=== PATIENT | female | born 2000 | race Caucasian/White ===

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

== ENCOUNTER 2021-04-14 14:54 | Emergency (ER) | payer MEDICAID, SELFPAY ==
--- NOTE | 2021-04-14 15:07 | ED.RN ---
Pt refuses to answer questions, states she is unsure if she wants to be seen. Officer carol ann at bedside, states pt does have a warrent. Pt refuses to be seen and is arrested and going to long-term
[2021-04-14 15:10] VITALS: TEMP -17.7; TEMP 0
== END 2021-04-14 14:59 | disposition left against medical advice (07) ==
PROVIDERS: PCP Pediatrics
DX: Z53.21 Procedure and treatment not carried out due to patient leaving prior to being seen by health care provider (principal)
CPT/HCPCS: 99281

== ENCOUNTER 2021-08-17 14:43 | Emergency (ER) | payer MEDICAID, SELFPAY ==
[2021-08-17 14:44] VITALS: BP 154/79; PULSE 102; RESP 16; TEMP 36.4; O2SAT 97; BMI 24.1
--- NOTE | 2021-08-17 15:21 | ED.VIS.GI ---
HPI HPI - GI History of Present Illness Chief Complaint: Nausea/Vomiting Informant: patient Abdominal Pain/Flank Pain Onset: Month(s) Context: Gradual Onset Timing: Intermittent Current Severity: Mild Maximum Severity: Mild Worsened by: Nothing Relieved by: Nothing Nausea/Vomiting/Emesis GI Symptom: Positive for Nausea and Vomiting Onset: Month(s) Severity: Mild Diarrhea/Melena/Hematochezia GI Symptom: Negative for Diarrhea, Melena and Hematochezia Associated Symptoms Associated Symptoms: Negative for Dysuria, Frequency and Hematuria Narrative Narrative: 20-year-old female history of irritable bowel syndrome. States she has been having nausea and vomiting intermittently for months. Today she had a low-grade fever around 100. States she had Covid a year ago. Does not have any cough or shortness of breath. Denies any dysuria. Currently no abdominal pain. States after she eats from time to time she will of nausea and vomiting. No diarrhea. No localizing abdominal pain. Said she may have lost 5 to 10 pounds she is down around 129 pounds and normally rates around 140. She denies any significant prior surgeries. Patient does have a history of IV drug abuse but says she has not used for last several weeks. Prior similar symptoms: Yes Recent Illness/Hospitalization: No PFSH PFSH Home Medications doxycycline monohydrate 100 mg PO BID #20 cap 11/15/20 [Rx Last Taken Unknown] ciprofloxacin HCl 500 mg PO BID #14 tab 12/03/20 [Rx Last Taken Unknown] ondansetron 4 mg PO Q8H PRN #7 tab 08/17/21 [Rx Last Taken Unknown] Allergy/AdvReac Type Severity Reaction Status Date / Time Penicillins Allergy Unknown Verified 08/17/21 14:46 Social History Smoking Status: Current every day smoker tobacco type: cigarettes ROS ROS ED ROS Narrative Nausea and vomiting. Review of Systems ROS Unobtainable: Denies due to encephalopathy Constitutional Constitutional ED: Reports fever(s) ENT ENT ED: Denies ear pain or sore throat Cardiovascular Cardiovascular: Denies chest pain Respiratory/Chest Respiratory/Chest: Denies cough or dyspnea Gastrointestinal Gastrointestinal: Reports abdominal pain, nausea and vomiting; Denies constipation, diarrhea or melena Genitourinary Genitourinary ED: Denies dysuria or hematuria Musculoskeletal Musculoskeletal: Denies myalgias Integumentary Denies rash Neurologic Neurologic: Reports headache(s) Psychiatric Psychiatric: Denies depression Endocrine Endocrinology: Denies polyuria Hematologic/Lymphatic Hematologic/Lymphatic: Denies easy bruising Allergic/Immunologic Allergic/Immunologic ED: Denies urticaria EXAM Physical Exam Narrative Exam Narrative: 89-year-old female no acute distress. Vital signs stable afebrile. H EENT exam unremarkable. Posterior pharynx normal. No erythema or exudate. Moist mucous membranes. No signs of trauma. Neck nontender no meningismus. No lymphadenopathy. Lungs clear to auscultation bilaterally. Heart regular rhythm no murmur rate about 100. Abdomen soft nondistended normal bowel sounds no peritoneal signs. Moving all 4 extremities neurovascularly intact. Nontender no cellulitis. Track ceballos in both antecubital areas also left side of her neck. Not infected. She has prior cutting scars on her left forearm. Neurologically she is awake alert with no focal motor deficits. Back nontender. Const Vital Signs: 08/17/21 14:44 Temperature 97.6 F L Temperature Source Temporal Pulse Rate 102 H Respiratory Rate 16 Blood Pressure 154/79 H Blood Pressure Mean 104 Pulse Ox 97 Oxygen Delivery Method Room Air Positive well nourished and well developed; Negative for obese, cachectic, contractures or unkempt General Appearance ED: well developed and NAD; Negative for unkempt, cachectic, contractures or pallor Nutritional Appearance: Negative for cachectic or obese HEENT Reports moist mucous membranes normocephalic and atraumatic; Negative for trauma or tenderness Eyes PERRL and EOMs intact bilaterally Neck no lymphadenopathy, supple and no JVD General: Negative for tenderness Resp normal respiratory effort and clear to auscultation bilaterally Auscultation: Negative for rales, rhonchi or wheezes Cardio regular rate, regular rhythm, S1 normal heart sound, S2 normal heart sound and no murmurs GI non-tender, non-distended and no masses Inspection: Negative for abdominal distention Auscultation: normoactive bowel sounds; Negative for hyperactive bowel sounds or hypoactive bowel sounds Palpation: soft; Negative for tender, guarding, rigid, hepatomegaly, splenomegaly or rebound tenderness present Back/Spine no CVA tenderness General Back: Negative for CVA tenderness Cervical Spine: Negative for cervical spine tenderness Thoracic Spine / Upper Back: Negative for thoracic spinal tenderness Extremity full ROM General Extremety ED: Negative for edema or tenderness General Extremity: Negative for edema Neuro CN's II-XII intact bilaterally and moves all extremities Sensorium / Orientation: alert, oriented to person, oriented to place and oriented to time; Negative for orientation impaired, confused, lethargic or stuporous Motor Exam: strength 5/5 throughout; Negative for general weakness Psych mental status grossly normal and thought process normal Appearance: Negative for unkempt Skin no wounds Skin Narrative: Track ceballos both arms and the left side of her neck. No acute infection. General Skin Exam: Negative for jaundice or pallor Lesions: no lesions Rashes: no rashes MDM MDM MDM Narrative Medical decision making narrative: Serum test negative.20-year-old with intermittent nausea and vomiting for months. Low-grade fever today prior to arrival currently she is afebrile. Screening labs are being obtained. Exam is benign. Exam patient is doing well at 4:40 PM. Repeat exam benign and unchanged. Clinically looks well she will be discharged home with outpatient follow-up with her primary care provider Dr. Frde Delgado. Lab Data Attestation: I reviewed the patient's lab results. Lab results narrative: CBC is normal white count 8. Hemoglobin 12.9. Platelets of 413. Electrolytes show a gap at 9 normal BUN and creatinine. Liver enzymes are unremarkable lipase is normal at 53. Urinalysis is negative other than occult blood. No nitrates and 1+ bacteria. No white or red cells. Labs: Laboratory Results - last 24 hr 08/17/21 08/17/21 08/17/21 15:24 15:40 15:40 WBC 8.7 RBC 4.72 Hgb 12.9 Hct 38.4 MCV 81.4 MCH 27.3 MCHC 33.6 RDW Std Deviation 39.5 RDW Coeff of [place] 13.5 Plt Count 413 MPV 10.3 Immature Gran % (Auto) 0.300 Neut % (Auto) 79.7 H Lymph % (Auto) 16.7 L [place] % (Auto) 2.7 Eos % (Auto) 0.0 Baso % (Auto) 0.6 Absolute Neuts (auto) 6.9 Absolute Lymphs (auto) 1.45 Nucleated RBC % 0 Sodium 137 Potassium 4.2 Chloride 102 Carbon Dioxide 26.0 Anion Gap 9 BUN 12 Creatinine 0.94 Estim Creat Clear Calc 72.64 Est GFR (MDRD) Af Amer 98 Est GFR (MDRD) Non-Af 81 BUN/Creatinine Ratio 12.7 Glucose 101 Calcium 9.9 Total Bilirubin 0.60 AST 32 ALT 44 Alkaline Phosphatase 111 Total Protein 9.3 H Albumin 3.8 Globulin 5.5 H Albumin/Globulin Ratio 0.7 L Lipase 53 L Urine Color Yellow Urine Clarity Clear Urine pH 8.0 Ur Specific [place] 1.010 Urine Protein Negative Urine Glucose (UA) Normal Urine Ketones Negative Urine Occult Blood 250 H Urine Nitrite Negative Urine Bilirubin Negative Urine Urobilinogen Normal Ur Leukocyte Esterase Negative Urine RBC 0 SEEN Urine WBC 0-5 SEEN Ur Squamous Epith Cells 0-5 SEEN Urine Bacteria 1+ Urine Mucus 0 SEEN Radiography Diagnostic Testing: Clinical Impression(s) from Imaging Studies Chest X-Ray 08/17/21 15:48 IMPRESSION: Normal x-ray examination of the chest. Electronically Signed: Nasim Peres DO at 16:22 EST Tel [phone], Service support , Chest x-ray, portable, single view interpreted by myself shows no acute abnormality. Normal cardiac silhouette. Normal mediastinum. Normal lungs bilaterally. No signs of any infiltrate. Discharge Plan Triage Chief Complaint: Nausea/Vomiting ED Provider: Jai Cope Dx/Rx/DC Orders Clinical Impression: Nausea & vomiting, Heroin abuse Instructions: ED Vomiting (Adult) Prescriptions: New ondansetron 4 mg tablet,disintegrating 4 mg PO Q8H PRN (Reason: nausea and vomiting) Qty: 7 RF: 0 No Action doxycycline monohydrate 100 MG capsule 100 mg PO BID Qty: 20 RF: 0 ciprofloxacin HCl 500 MG tablet 500 mg PO BID Qty: 14 RF: 0 Primary Care Provider: Armando Katz Referrals: Armando Katz MD [Primary Care Provider] - 3-5 Days if not improving Activity Restrictions/Additional Instructions: Plenty of fluids and rest. Follow-up with your primary care provider Dr. Vishal Katz if not improving. Zofran as needed for nausea. Return emergency room if you are feeling worse. Disposition Disposition: Home, Self Care
[2021-08-17 15:31] LABS: Mucous, Urine 0 SEEN /hpf (<or=2+); Red Blood Cells-Urine 0 SEEN /hpf (0-5)
[2021-08-17 15:38] LABS: Color, Urine Yellow (Yellow); Glucose, Dipstick Normal (Normal); Ketone-Dipstick Negative (Negative); Leukocyte Esterase-Dipstick Negative /ul (Negative); Nitrite-Dipstick Negative (Negative); Occult Blood-Urine 250 /ul (Negative); Protein-Dipstick Negative (Negative); Urine Bilirubin Dipstick Negative (Negative); Urine Clarity Clear (Clear); Urine Urobilinogen Normal (Normal)
--- NOTE | 2021-08-17 15:45 | ED.RN ---
After starting IV with ultrasound and obtaining bloodwork, pt states so you will just call me with my results This RN explains that she needs to wait for results that take usually 45-60 mintutes and then the doctor will go over them. PT states no one told me i have to wait for results This RN reviews the ER process again. Pt states well then i need to go outside and smoke This RN explains that [facility] is a smoke free facility and smoking on property is prohibited. This RN also explains to patient that she cannot leave the department with the IV in her arm. Pt states then take it out This RN explains that after her test results come back the doctor may order further tests or IV medications that would require the IV in place. Pt states then you can start a new one This RN d/c's patients IV at this time.
--- NOTE | 2021-08-17 15:48 | RAD_ITS ---
STUDY: X-RAY CHEST REASON FOR EXAM: Female, 20 years old. Complaints of nausea and vomiting after eating or drinking. Back pain, chest pain and fatigue for many months. Fever. TECHNIQUE: 5 COMPARISON: None. FINDINGS: The lungs are clear and expanded. There is no demonstrated pleural abnormality. Normal size heart. Normal mediastinum and galo. Normal visualized pulmonary arteries. Normal visualized aortic arch and descending thoracic aorta. Normal visualized thoracic spine. Normal visualized ribs, clavicles, and shoulders. There is no demonstrated abnormality of the visualized soft tissue structures of the upper abdomen. RAD/Chest 1 View (Portable) IMPRESSION: Normal x-ray examination of the chest. Electronically Signed: Nasim Peres DO at 16:22 EST Tel [phone], Service support ,
[2021-08-17 16:01] LABS: Absolute Lymphocyte Count 1.45 X10^3/uL (0.83-4.51); Absolute Neutrophil Count 6.9 X10^3/uL (2.0-7.7); Basophil# 0.05 X10^3/uL; Basophil% 0.6 % (0-1); Hematocrit 38.4 % (37-47); Hemoglobin 12.9 g/dL (12.0-15.0); Lymphocyte # 1.45 X10^3/ul (0.83-4.51); Lymphocyte % 16.7 % (19-41); Mean Corp Hgb Conc 33.6 g/dL (32-36); Mean Corpuscular Hgb 27.3 pg (27.0-32.0); Mean Corpuscular Volume 81.4 fL (81-99); Mean Platelet Vol. 10.3 fl (6.2-12.0); Monocyte# 0.23 X10^3/uL; Monocyte% 2.7 % (0-10); NRBC Flagged by Analyzer 0 % (0-5); Neutrophil % 79.7 % (47-70); Platelet Count 413 K/mm3 (150-450); RBC Distribution Width CV 13.5 % (11.6-14.6); RBC Distribution Width SD 39.5 fl (35.1-43.9); Red Blood Count 4.72 M/mm3 (4.2-5.4); White Blood Count 8.7 K/mm3 (4.4-11.0)
[2021-08-17 16:04] LABS: Bacteria 1+ /hpf (None Seen); Squamous Epithelial Cells - UA 0-5 SEEN /hpf (5-10); White Blood Cells 0-5 SEEN /hpf (0-5)
[2021-08-17 16:15] LABS: ALB/GLOB Ratio 0.7 RATIO (0.9-2.4); AST(SGOT) 32 U/L (15-37); Alanine Aminotransfer ALT/SGPT 44 U/L (13-56); Albumin, Serum 3.8 g/dL (3.2-5.0); Alkaline Phosphatase 111 U/L (45-117); Anion Gap 9 (5-15); BUN 12 mg/dL (7-18); BUN/Creat Ratio 12.7 RATIO (10-20); Calcium,Total 9.9 mg/dL (8.5-10.1); Chloride 102 mmol/L (98-107); Creatinine, Serum 0.94 mg/dL (0.55-1.02); EST Glomerular Filtration Rate 81 mL/min (>60); Est Glom Filt Rate - Afr Amer 98 mL/min (>60); Estimated Creatinine Clearance 72.64 ml/min; Globulin 5.5 g/dL (2.2-4.2); Glucose 101 mg/dL (74-106); Lipase 53 U/L (73-393); Potassium 4.2 mmol/L (3.5-5.1); Protein, Total 9.3 g/dL (6.4-8.2); Sodium Level 137 mmol/L (136-145)
[2021-08-17 16:47] LABS: Internal QC Validated? YES +Cl - CLEAR BKGD; Pregnancy, Serum, hCG Quali. NEGATIVE Negative
== END 2021-08-17 16:58 | disposition home or self-care (01) ==
PROVIDERS: Emergency Provider Emergency Medicine; PCP Pediatrics
DX: R11.2 Nausea with vomiting, unspecified (principal); F11.10 Opioid abuse, uncomplicated; K58.9 Irritable bowel syndrome, unspecified; F17.210 Nicotine dependence, cigarettes, uncomplicated
CPT/HCPCS: 71045; 80053; 81001; 83690; 84703; 85025; 87426; 99282; A4216

== ENCOUNTER 2022-04-13 15:36 | Observation (INO) | payer MEDICAID, SELFPAY ==
[2022-04-13 15:37] VITALS: BP 137/89; PULSE 93; RESP 17; TEMP 36.6; O2SAT 99; BMI 23.6
--- NOTE | 2022-04-13 15:49 | EX.ED.SAOD ---
HPI History of Present Illness Chief Complaint: Substance Abuse Narrative Narrative: Female presenting for detox from opioids. She states she typically snorts heroin but has injected as well. She states that oftentimes it is cut with fentanyl. She admits to smoking marijuana. She does not drink alcohol usually. She states she last used heroin this morning. She wants to be clean so she came in for detox. She is not having any symptoms of withdrawal. She states that at times she will get sweaty and nauseous and have some cramps with her withdrawal. She last detoxed a long time ago. She states she did successfully detox and then started using again. She is been using again for about a year. Patient otherwise healthy. She not concern for . [facility] Medical History (Updated 04/13/22 @ 16:25 by Elma Harding) Anxiety IBS (irritable bowel syndrome) Smoker Substance abuse Home Medications NK 04/13/22 [History Last Taken Unknown] Allergy/AdvReac Type Severity Reaction Status Date / Time Penicillins Allergy Unknown Verified 04/13/22 15:39 Social History Smoking Status: Current every day smoker tobacco type: cigarettes EXAM Physical Exam Const Vital Signs: 04/13/22 15:37 Temperature 97.9 F Temperature Source Temporal Pulse Rate 93 Respiratory Rate 17 Blood Pressure 137/89 H Blood Pressure Mean 105 Pulse Ox 99 Oxygen Delivery Method Room Air MDM MDM MDM Narrative Medical decision making narrative: Patient presenting for opioid detox. Last use was this morning. She is not having any symptoms of withdrawal. CBC is unremarkable. CMP shows normal renal function electrolytes. AST and ALT are slightly elevated. Bilirubin is normal. EtOH negative. Serum negative. Patient was given a nicotine patch. Urine drug screen is pending and patient was discussed with the hospitalist for admission. She is transported in stable condition. Impression: 1. Opioid abuse 2. Presentation for opioid detox Lab Data Attestation: I reviewed the patient's lab results. Labs: Laboratory Results - last 24 hr 04/13/22 04/13/22 04/13/22 15:55 15:55 15:55 WBC 6.4 RBC 5.27 Hgb 15.5 H Hct 44.1 MCV 83.7 MCH 29.4 MCHC 35.1 RDW Std Deviation 38.0 RDW Coeff of [place] 12.5 Plt Count 316 MPV 9.8 Immature Gran % (Auto) 0.300 Neut % (Auto) 45.9 L Lymph % (Auto) 43.9 H [place] % (Auto) 5.2 Eos % (Auto) 3.4 Baso % (Auto) 1.3 H Absolute Neuts (auto) 2.9 Absolute Lymphs (auto) 2.80 Nucleated RBC % 0 Sodium 139 Potassium 3.8 Chloride 107 Carbon Dioxide 29.0 Anion Gap 3 L BUN 8 Creatinine 0.76 Estim Creat Clear Calc 89.10 Est GFR (MDRD) Af Amer 124 Est GFR (MDRD) Non-Af 102 BUN/Creatinine Ratio 10.5 Glucose 104 Calcium 9.7 Total Bilirubin 0.30 AST 44 H ALT 90 H Alkaline Phosphatase 117 Total Protein 8.9 H Albumin 4.4 Globulin 4.5 H Albumin/Globulin Ratio 1.0 Serum , Qual Ethyl Alcohol < 3.0 04/13/22 15:55 WBC RBC Hgb Hct MCV MCH MCHC RDW Std Deviation RDW Coeff of [place] Plt Count MPV Immature Gran % (Auto) Neut % (Auto) Lymph % (Auto) [place] % (Auto) Eos % (Auto) Baso % (Auto) Absolute Neuts (auto) Absolute Lymphs (auto) Nucleated RBC % Sodium Potassium Chloride Carbon Dioxide Anion Gap BUN Creatinine Estim Creat Clear Calc Est GFR (MDRD) Af Amer Est GFR (MDRD) Non-Af BUN/Creatinine Ratio Glucose Calcium Total Bilirubin AST ALT Alkaline Phosphatase Total Protein Albumin Globulin Albumin/Globulin Ratio Serum , Qual NEGATIVE Ethyl Alcohol Discharge Plan Triage Chief Complaint: Substance Abuse ED Provider: Declan Patel Dx/Rx/DC Orders Prescriptions: No Action NK Primary Care Provider: Care Physician,No Primary Referrals: NOT,DEFINED [NON-STAFF] -
--- NOTE | 2022-04-13 16:09 | CM.ED ---
Social Work Note Reason for Referral: Detox SW reviewed chart. Pt is at [facility] for detox. SW in to speak with pt. Pt states she signed the contract for the [facility] program and agreeable to the program. SW placed a call to Maribel, addiction therapist, and left message updating her on referral. Danuta Sequeira [employer] ADMINISTRATOR, QUALITY ASSURANCE SPECIALIST
[2022-04-13 16:20] LABS: Absolute Neutrophil Count 2.9 X10^3/uL (2.0-7.7); Basophil# 0.08 X10^3/uL; Basophil% 1.3 % (0-1); Eosinophil# 0.22 X10^3/uL; Eosinophils% 3.4 % (0-5); Hematocrit 44.1 % (37-47); Hemoglobin 15.5 g/dL (12.0-15.0); Lymphocyte % 43.9 % (19-41); Mean Corp Hgb Conc 35.1 g/dL (32-36); Mean Corpuscular Hgb 29.4 pg (27.0-32.0); Mean Corpuscular Volume 83.7 fL (81-99); Mean Platelet Vol. 9.8 fl (6.2-12.0); Monocyte# 0.33 X10^3/uL; Monocyte% 5.2 % (0-10); NRBC Flagged by Analyzer 0 % (0-5); Neutrophil # 2.93 X10^3/uL (2.7-7.7); Neutrophil % 45.9 % (47-70); Platelet Count 316 K/mm3 (150-450); RBC Distribution Width CV 12.5 % (11.6-14.6); Red Blood Count 5.27 M/mm3 (4.2-5.4); White Blood Count 6.4 K/mm3 (4.4-11.0)
[2022-04-13 16:32] LABS: AST(SGOT) 44 U/L (15-37); Alanine Aminotransfer ALT/SGPT 90 U/L (13-56); Albumin, Serum 4.4 g/dL (3.2-5.0); Alkaline Phosphatase 117 U/L (45-117); Anion Gap 3 (5-15); BUN 8 mg/dL (7-18); BUN/Creat Ratio 10.5 RATIO (10-20); Calcium,Total 9.7 mg/dL (8.5-10.1); Chloride 107 mmol/L (98-107); Creatinine, Serum 0.76 mg/dL (0.55-1.02); EST Glomerular Filtration Rate 102 mL/min (>60); Est Glom Filt Rate - Afr Amer 124 mL/min (>60); Globulin 4.5 g/dL (2.2-4.2); Glucose 104 mg/dL (74-106); Potassium 3.8 mmol/L (3.5-5.1); Protein, Total 8.9 g/dL (6.4-8.2); Sodium Level 139 mmol/L (136-145)
[2022-04-13 16:35] LABS: Internal QC Validated? YES +Cl - CLEAR BKGD; Pregnancy, Serum, hCG Quali. NEGATIVE Negative
[2022-04-13 16:40] LABS: Alcohol, Blood (Medical)-Serum < 3.0 mg/dL
--- NOTE | 2022-04-13 17:22 | PCM.HP.STD ---
HPI - General General Date of Admission: 04/13/22 Date of Service: 04/13/22 Chief Complaint: Opiate detox HPI Narrative FERNANDO CALABRESE, is a 21 F who presented to the emergency department [facility] requesting detox from opiates. She states her last use was this morning at approximately 11 AM. She is currently not experiencing any withdrawal symptoms. She uses approximately 1 to 2 g daily and starts experiencing withdrawal symptoms within a few hours of usage. She states she has been through detox once before but that that more at the request of her family and now she feels that she is ready for detox herself. She admits to tobacco abuse approximately 1 pack/day of cigarettes and states she intermittently uses marijuana as well. She admits to previous use of methamphetamines as well however she states she is not typically using this daily unless its cut into her heroin. Vital signs on presentation show a temperature of 97.9, blood pressure of 137/89, pulse of 98, respiratory rate of 17 and an oxygen saturation of 99% on room air. Her CBC is overall unimpressive except for a mild erythrocytosis with a hemoglobin of 15.5. Her chemistry panel is unremarkable except for liver enzyme elevation with an ALT of 90 and an AST of 44. Her test is negative and her ethyl alcohol level is less than 3. General toxicology screen is still pending. She did medicate that she may have a history of hepatitis C but is unsure. Upon review of my labs she has a positive hepatitis C antibody. [facility] Medical History (Updated 04/13/22 @ 17:[address] Eneida Olvera DO) Anxiety Hepatitis C IBS (irritable bowel syndrome) IVDU (intravenous drug user) Smoker Substance abuse Tobacco abuse Home Medications NK 04/13/22 [History Last Taken Unknown] Allergy/AdvReac Type Severity Reaction Status Date / Time Penicillins Allergy Unknown Verified 04/13/22 15:39 Family History (Updated 04/13/22 @ 17:[address] Eneida Olvera DO) Mother Thyroid disorder Substance abuse Father Substance abuse Surgical History (Updated 04/13/22 @ 17:[address] Eneida Olvera DO) History of colonoscopy History of esophagogastroduodenoscopy (EGD) Social History (Updated 04/13/22 @ 17:[address] Eneida Olvera DO) Smoking Status: Current every day smoker tobacco type: cigarettes Smoking packs per day: 1 Smoking cigarettes per day: 20.0 alcohol intake: never substance use type: marijuana, amphetamines, opiates and methamphetamine ROS Constitutional Constitutional: Denies anorexia, change in weight, chills, fatigue, fever(s), malaise, night sweats, weakness or other Eyes Eyes: Denies blurry vision, change in eye color, change in vision, discharge from eye(s), double vision, erythema, eye pain, loss of vision or other ENT HEENT: Denies abnormal hearing, dysphagia, ear pain, epistaxis, headache(s), hearing loss, nasal congestion, nasal discharge, post nasal drip, sinus pressure, sore throat or other Cardiovascular Cardiovascular: Denies chest pain, claudication, dyspnea on exertion, edema, lightheadedness, orthopnea, palpitations, paroxysmal nocturnal dyspnea, rapid heart rate, syncope or other Respiratory/Chest Respiratory/Chest: Denies cough, dyspnea, excessive phlegm production, hemoptysis, productive cough, shortness of breath at rest, shortness of breath with exertion, wheezing or other Gastrointestinal Gastrointestinal: Denies abdominal pain, coffee ground emesis, constipation, diarrhea, dyspepsia, hematemesis, hematochezia, loose stools, melena, nausea, vomiting or other Genitourinary Genitourinary: Denies burning urination, difficulty urinating, dysuria, hematuria, nocturia, urinary frequency, urinary hesitancy, urinary incontinence, urinary urgency or other Musculoskeletal Musculoskeletal: Denies arthralgias, back pain, joint pain, joint stiffness, joint swelling, myalgias, neck pain or other Neurologic Neurologic: Denies abnormal gait, abnormal speech, confusion, disequilibrium, dizziness, focal weakness, headache(s), numbness, paresthesias, seizure-like activity, seizures, syncope, tingling, tremor(s) or other Psychiatric Psychiatric: Denies anxiety, depression, homicidal ideation, suicidal ideation or other Endocrine Endocrinology: Denies change in body appearance, cold intolerance, excessive sweating, heat intolerance, polydipsia, polyuria or other Hematologic/Lymphatic Hematologic/Lymphatic: Denies anemia, easy bleeding, easy bruising, lymphadenopathy or other Allergic/Immunologic Allergic/Immunologic: Denies rhinitis, hives, eczemia, asthma or other Vital Signs Vital Signs Vital Signs: 04/13/22 15:37 Temperature 97.9 F Temperature Source Temporal Pulse Rate 93 Respiratory Rate 17 Blood Pressure 137/89 H Blood Pressure Mean 105 Pulse Ox 99 Oxygen Delivery Method Room Air Weight Weight: 56.699 kg Body Mass Index (BMI) 23.6 Physical Exam Const alert, oriented x3, no apparent distress, average body habitus, healthy appearing and well nourished Constitutional Narrative: Young white female, sitting up in bed, appears comfortable nontoxic HEENT normocephalic, head/scalp atraumatic, hearing grossly normal bilaterally and moist oral mucous membranes HEENT Narrative: Dentition is fair with few dental caries noted in posterior teeth Resp normal respiratory effort, no retractions, no use of accessory muscles and clear to auscultation bilaterally Auscultation: Negative for crackles, rales, rhonchi or wheezes Cardio regular rate, regular rhythm, S1 normal heart sound, S2 normal heart sound, no murmurs, no rub, no gallops, no clicks and no JVD GI normal to inspection, nondistended, normoactive bowel sounds, soft to palpation, non-tender and non-distended; Negative for hepatosplenomegaly Extremity no clubbing, cyanosis or edema Extremity Narrative: 2+ pedal pulses Skin Skin Narrative: No track ceballos noted, evidence of previous cutting on forearms volarly bilaterally Neuro oriented x3, CN's II-XII intact bilaterally, moves all extremities and no focal motor deficits Speech: speech normal Psych affect normal Psych Narrative: Appropriately interactive Mood & Affect: anxious Results Lab / Micro Data Result Diagrams: 04/13/22 15:55 04/13/22 15:55 Labs: Laboratory Results - last 24 hr 04/13/22 15:55: WBC 6.4, RBC 5.27, Hgb 15.5 H, Hct 44.1, MCV 83.7, MCH 29.4, MCHC 35.1, RDW Std Deviation 38.0, RDW Coeff of [place] 12.5, Plt Count 316, MPV 9.8, Immature Gran % (Auto) 0.300, Neut % (Auto) 45.9 L, Lymph % (Auto) 43.9 H, [place] % (Auto) 5.2, Eos % (Auto) 3.4, Baso % (Auto) 1.3 H, Absolute Neuts (auto) 2.9, Absolute Lymphs (auto) 2.80, Nucleated RBC % 0 04/13/22 15:55: Sodium 139, Potassium 3.8, Chloride 107, Carbon Dioxide 29.0, Anion Gap 3 L, BUN 8, Creatinine 0.76, Estim Creat Clear Calc 89.10, Est GFR (MDRD) Af Amer 124, Est GFR (MDRD) Non-Af 102, BUN/Creatinine Ratio 10.5, Glucose 104, Calcium 9.7, Total Bilirubin 0.30, AST 44 H, ALT 90 H, Alkaline Phosphatase 117, Total Protein 8.9 H, Albumin 4.4, Globulin 4.5 H, Albumin/Globulin Ratio 1.0 04/13/22 15:55: Ethyl Alcohol < 3.0 04/13/22 15:55: Serum , Qual NEGATIVE Assessment & Plan Assessment/Plan (1) Heroin abuse: (2) Transaminitis: (3) Opiate withdrawal: PLAN: Plan Opiate abuse with pending withdrawal -Last use was this morning at 11 AM -Uses approximately 1 to 2 g daily -Has been through detox once previously -Start Subutex per COWS -Supportive medications -Consult 180 Hepatitis C with transaminitis -Suspect chronic infection -Patient has history of positive antibody in our system -Would recommend outpatient follow-up with gastroenterology after her sober to discuss possible treatment -Patient did express treatment upon admission IBS -Patient is not on any chronic medications -Patient has had previous EGD and colonoscopy Tobacco abuse -Nicotine patch 21 mics daily -Recommend cessation DVT prophylaxis -Low risk -Ambulation CODE STATUS Full code Charges/Coding Visit Charges Inpatient E&M: 13981 Init Hosp L2
[2022-04-13 17:55] VITALS: BP 137/89; PULSE 93; RESP 17; TEMP 36.6; O2SAT 99
[2022-04-13 18:17] VITALS: BP 137/89; PULSE 93; RESP 17; TEMP 36.6; O2SAT 99
[2022-04-13 18:29] VITALS: BP 117/67; PULSE 74; RESP 18; TEMP 36.6; O2SAT 99
[2022-04-13 18:29] LABS: Amphetamine Urine VISTA NEGATIVE (<1000 ng/mL); Barbiturate Urine VISTA NEGATIVE (< 200 ng/mL); Benzodiazepine Urine VISTA NEGATIVE (< 200 ng/mL); Cocaine Urine VISTA NEGATIVE (< 300 ng/mL); Ecstacy Urine VISTA POSITIVE (< 500 ng/mL); Methadone Urine VISTA NEGATIVE (< 300 ng/mL); PCP Urine VISTA NEGATIVE (< 25 ng/mL); THC Urine VISTA POSITIVE (< 50 ng/mL); Vista UDS pH Range 4
[2022-04-13 18:30] VITALS: BMI 28.9
[2022-04-13 19:41] LABS: HIV - WCH Non-Reactive (Nonreactive)
[2022-04-13 19:50] VITALS: BP 110/72; PULSE 83; RESP 12; TEMP 36.3; O2SAT 98
[2022-04-13] MEDS: traZODone 100 MG Tablet PO (19:57)
[2022-04-14 02:00] VITALS: BP 98/45; PULSE 73; RESP 14; TEMP 36.6; O2SAT 98
[2022-04-14] MEDS: Ibuprofen 400 MG Tablet PO ×2 (03:05→20:24)
[2022-04-14 06:51] VITALS: BP 90/42; PULSE 72; RESP 12; TEMP 36.6; O2SAT 98
[2022-04-14 09:01] VITALS: BP 93/49; PULSE 77; RESP 16; TEMP 36.6; O2SAT 99
[2022-04-14] MEDS: Ondansetron 8 MG Tablet PO (09:03)
--- NOTE | 2022-04-14 09:44 | PCM.PN.HOSP ---
Documented by User: Sandi Gregg NP-C 04/14/22 09:52 Subjective Subjective Patient seen and examined. Patient lying in bed no distress noted. Patient reporting diaphoresis and nausea. Objective Data Objective Data Vital Signs: Vital Signs Temp Pulse Resp BP Pulse Ox O2 Del Method 97.8 F 77 16 93/49 L 99 Room Air 04/14/22 09:01 04/14/22 09:01 04/14/22 09:01 04/14/22 09:01 04/14/22 09:01 04/14/22 09:01 Oxygen Delivery Method Room Air Weight: 153 lb 3.54 oz Body Mass Index (BMI) 28.9 Intake & Output: Intake and Output for Last 24 Hours 04/12/22 04/13/22 04/14/22 23:59 23:59 23:59 Intake Total 800 / 800 Balance 800 / 800 Lab / Micro Data Result Diagrams: 04/13/22 15:55 04/13/22 15:55 Labs: Laboratory Results - last 24 hr 04/13/22 15:55: WBC 6.4, RBC 5.27, Hgb 15.5 H, Hct 44.1, MCV 83.7, MCH 29.4, MCHC 35.1, RDW Std Deviation 38.0, RDW Coeff of [place] 12.5, Plt Count 316, MPV 9.8, Immature Gran % (Auto) 0.300, Neut % (Auto) 45.9 L, Lymph % (Auto) 43.9 H, [place] % (Auto) 5.2, Eos % (Auto) 3.4, Baso % (Auto) 1.3 H, Absolute Neuts (auto) 2.9, Absolute Lymphs (auto) 2.80, Nucleated RBC % 0 04/13/22 15:55: Sodium 139, Potassium 3.8, Chloride 107, Carbon Dioxide 29.0, Anion Gap 3 L, BUN 8, Creatinine 0.76, Estim Creat Clear Calc 89.10, Est GFR (MDRD) Af Amer 124, Est GFR (MDRD) Non-Af 102, BUN/Creatinine Ratio 10.5, Glucose 104, Calcium 9.7, Total Bilirubin 0.30, AST 44 H, ALT 90 H, Alkaline Phosphatase 117, Total Protein 8.9 H, Albumin 4.4, Globulin 4.5 H, Albumin/Globulin Ratio 1.0 04/13/22 15:55: Ethyl Alcohol < 3.0 04/13/22 15:55: Serum , Qual NEGATIVE 04/13/22 15:55: HIV 1&2 Antibody Non-Reactive 04/13/22 17:20: Urine Opiates Screen POSITIVE H, Urine Methadone Screen NEGATIVE, Ur Barbiturates Screen NEGATIVE, Ur Phencyclidine Scrn NEGATIVE, Ur Amphetamines Screen NEGATIVE, MDMA (Ecstasy) Screen POSITIVE H, U Benzodiazepines Scrn NEGATIVE, Urine Cocaine Screen NEGATIVE, U Cannabinoids Screen POSITIVE H, Ur Drug Screen Comment Physical Exam Const alert, oriented x3, no apparent distress, healthy appearing and well nourished HEENT normocephalic, head/scalp atraumatic, hearing grossly normal bilaterally and moist oral mucous membranes Resp normal respiratory effort and clear to auscultation bilaterally Cardio regular rate, regular rhythm, S1 normal heart sound and S2 normal heart sound GI normal to inspection, nondistended, normoactive bowel sounds, soft to palpation and non-tender Extremity no clubbing, cyanosis or edema Extremity Narrative: 2+ pedal pulses Skin Skin Narrative: No track ceballos noted, evidence of previous cutting on forearms volarly bilaterally Neuro oriented x3, moves all extremities and no focal motor deficits Speech: speech normal Psych affect normal Assessment & Plan Assessment/Plan (1) Heroin abuse: (2) Transaminitis: (3) Opiate withdrawal: PLAN: Plan 1. Opiate abuse with pending withdrawal -Start Subutex per COWS -Supportive medications per protocol -Consult 180 2. Hepatitis C with transaminitis -Suspect chronic infection -Patient has history of positive antibody in our system -Would recommend outpatient follow-up with gastroenterology after her sober to discuss possible treatment, patient amenable to treatment 3. IBS -Patient is not on any chronic medications 4. Tobacco abuse -Nicotine patch daily -Recommend cessation DVT prophylaxis-no pharmacological prophylaxis, encourage ambulation This patient was seen by SULEMAN Maradiaga under the supervision of Dr. Rivera. 12 minutes spent in clinical coordination of patient's plan of care. Documented by User: Dr. Marifer Rivera MD 04/14/22 15:00 Objective Data Lab / Micro Data Result Diagrams: 04/13/22 15:55 04/13/22 15:55 Assessment & Plan Assessment/Plan (1) Heroin abuse: (2) Transaminitis: (3) Opiate withdrawal: Charges/Coding Addendum Addendum: This patient was seen in conjunction with Drew Gregg NP. I have independently interviewed and examined the patient and reviewed pertinent historical, laboratory, and other data. I have reviewed her note and concur with her documentation Patient was seen and examined. She complains of feeling restless and having cramps as well as feeling hot and cold. She was yet to be started on Subutex. Physical Exam: Gen: Comfortable, not pale, not jaundiced CVS:HS I +II, regular, no murmurs RESP: Diminished at lung bases GI: BS present and normal, soft, nontender, no palpable organs EXT:No edema ASSESSMENT: 1. Acute opioid withdrawal 2. Chronic Hep C 3. Nicotine dependence 4. IBS Plan: Admit to [facility] on Subutex withdrawal protocol Nicotine replacement Needs outpatient follow-up for Hep C Time spent taking patient's history, physically examining her, chart review, coordinating all aspects of patient's care, discussing with nursin minutes Visit Charges Inpatient E&M: 75612 Subs Hosp L2
[2022-04-14 12:03] VITALS: BP 118/66; PULSE 76; RESP 16; TEMP 36.6; O2SAT 100
[2022-04-14] MEDS: Buprenorphine HCl 2 MG TAB.SUBL SL ×2 (12:24→20:23)
[2022-04-14] MEDS: hydrOXYzine PAM 25 MG Capsule 50 MG PO (13:34)
[2022-04-14] MEDS: cloNIDine HCl 0.1 MG Tablet PO ×2 (13:34→23:21)
[2022-04-14] MEDS: Methocarbamol 750 MG Tablet 1500 MG PO (13:34)
[2022-04-14] MEDS: Gabapentin 300 MG Capsule PO (14:39)
--- NOTE | 2022-04-14 14:40 | CHAPLAIN ---
Type of Pastoral Visit _x__ Initial Visit ___ Follow-up Visit ___ On-call Visit ___ General Patient Visit ___ Spiritual Assessment ___ Family Conference ___ Bereavement ___ Rapid Response ___ Code Blue ___ Other (describe below) Pastoral Care Referral From _x__ Patient ___ Family ___ Nurse ___ Physician ___ Multiple Effect Evaporator Operator ___ [employer] ___ Other (describe below) Sacrament/Intervention _x__ Active listening ___ Anointing ___ Pentecostalism ___ Bereavement ___ Communion ___ Corina exploration ___ ___ Life review _x__ Prayer ___ Reconciliation ___ Sacrament of Sick _x__ Supportive presence ___ Wedding ___ Other (describe below) Pastoral Comments patient welcomes visit; pt states that I am just done with this; pt says that she has been in detox before but then it was because of family pressure; pt says I am doing this now because I want it and this time I'm done with it; pt and this medical office technician talk about what are her hopes for life and what support she has to make it through; pt is unsure about her next step but states her family will be helpful; prayer is welcomed by pt
--- NOTE | 2022-04-14 14:40 | ADDICTION ---
Addendum entered by King Cartagena 04/14/22 14:51: This SW went back in to the room, but client was unresponsive and appeared to be sleeping despite several attempts to rouse and hearing recent screams. Original Note: This SW met with pt. to interview regarding admission symptoms. Pt. was verbally aggressive and asked this SW to leave multiple times. Pt. appeared visibly uncomfortable. Pt. did engage in some questions and verified name and . She reported feeling terrible from heroin withdrawal and stated she was thinking of leaving AMA. This SW provided encouragement and tried engagement again. She reports strong cravings for heroin and feeling uncomfortable. She did state she received medication but it was not helping enough. She screamed a few times. I let her know it was required to complete these questions as part of the RAMP program and let her know I'd return in 5 minutes.
[2022-04-14 17:01] VITALS: BP 125/62; PULSE 86; RESP 14; TEMP 36.7; O2SAT 99
[2022-04-14 20:13] VITALS: BP 116/73; PULSE 85; RESP 12; TEMP 36.9; O2SAT 98
[2022-04-14] MEDS: traZODone 100 MG Tablet PO (20:24)
[2022-04-15 02:00] VITALS: BP 119/50; PULSE 92; RESP 12; TEMP 36.8; O2SAT 98
[2022-04-15] MEDS: Buprenorphine HCl 2 MG TAB.SUBL SL ×2 (04:25→12:03)
--- NOTE | 2022-04-15 09:31 | PCM.PN.HOSP ---
Documented by User: SULEMAN Maradiaga 04/15/22 09:34 Subjective Subjective Patient seen and examined. Patient lying in bed no distress noted. Patient asleep and unwilling to talk to provider this morning. Objective Data Objective Data Vital Signs: Vital Signs Temp Pulse Resp BP Pulse Ox O2 Del Method 98.2 F 92 12 119/50 L 98 Room Air 04/15/22 02:00 04/15/22 02:00 04/15/22 02:00 04/15/22 02:00 04/15/22 02:00 04/15/22 02:00 Oxygen Delivery Method Room Air Weight: 153 lb 3.54 oz Body Mass Index (BMI) 28.9 Intake & Output: Intake and Output for Last 24 Hours 04/13/22 04/14/22 04/15/22 23:59 23:59 23:59 Intake Total 2500 / 2900 600 / 600 Balance 2500 / 2900 600 / 600 Lab / Micro Data Result Diagrams: 04/13/22 15:55 04/13/22 15:55 Physical Exam Const alert, oriented x3, no apparent distress, healthy appearing and well nourished HEENT normocephalic, head/scalp atraumatic, hearing grossly normal bilaterally and moist oral mucous membranes Resp normal respiratory effort and clear to auscultation bilaterally Cardio regular rate, regular rhythm, S1 normal heart sound and S2 normal heart sound GI normal to inspection, nondistended, normoactive bowel sounds, soft to palpation and non-tender Extremity no clubbing, cyanosis or edema Extremity Narrative: 2+ pedal pulses Skin Skin Narrative: No track ceballos noted, evidence of previous cutting on forearms volarly bilaterally Neuro oriented x3, moves all extremities and no focal motor deficits Speech: speech normal Psych affect normal Assessment & Plan Assessment/Plan (1) Heroin abuse: (2) Transaminitis: (3) Opiate withdrawal: PLAN: Plan 1. Opiate abuse with pending withdrawal -Start Subutex per COWS -Supportive medications per protocol -Consult 180, refused to talk to King from 180 yesterday 2. Hepatitis C with transaminitis -Suspect chronic infection -Patient has history of positive antibody in our system -Would recommend outpatient follow-up with gastroenterology after her sober to discuss possible treatment, patient amenable to treatment 3. IBS -Patient is not on any chronic medications 4. Tobacco abuse -Nicotine patch daily -Recommend cessation DVT prophylaxis-no pharmacological prophylaxis, encourage ambulation This patient was seen by Sandi Gregg NP-C under the supervision of Dr. Rivera. 11 minutes spent in clinical coordination of patient's plan of care. Documented by User: Dr. Marifer Rivera MD 04/15/22 11:19 Objective Data Lab / Micro Data Result Diagrams: 04/13/22 15:55 04/13/22 15:55 Assessment & Plan Assessment/Plan (1) Heroin abuse: (2) Transaminitis: (3) Opiate withdrawal: Charges/Coding Addendum Addendum: This patient was seen in conjunction with Drew Gregg NP.?I have independently interviewed and examined the patient and reviewed pertinent historical, laboratory, and other data. I have reviewed her note and concur with her documentation Patient was seen and examined.? No acute events overnight. Denies any new complaints. Physical Exam: Gen: Comfortable, not pale, not jaundiced CVS:HS I +II, regular, no murmurs RESP: Diminished at lung bases GI: BS present and normal, soft, nontender, no palpable organs EXT:No edema ASSESSMENT: 1. Acute opioid withdrawal 2. Chronic Hep C 3. Nicotine dependence 4. IBS Plan: Continue on Subutex withdrawal protocol Outpatient follow-up for Hep C Time spent taking coordinating all aspects of patient's care, discussing with nursin minutes Visit Charges Inpatient E&M: 49284 Subs Hosp L2
[2022-04-15 10:00] VITALS: BP 122/54; PULSE 94; RESP 18; TEMP 36.7; O2SAT 98
[2022-04-15 15:19] VITALS: BP 117/55; PULSE 90; RESP 16; TEMP 36.7; O2SAT 98
--- NOTE | 2022-04-15 15:52 | NURSING ---
pt turned call light on, requesting to sign out AMA-pt states she feels all better and wants to leave, spoke w/pt about meds to try for anxiety, try moving to chair she said bed is uncomfortable gave #to nurse for her mom eddie called that # and left msg to return call-pt then left ambulatory, refused to wait for return call/ride
== END 2022-04-15 16:10 | disposition left against medical advice (07) ==
LOC: ED 16:06 → MS3 04-14 07:10
PROVIDERS: Admitting Provider Internal Medicine; Emergency Provider Student in an Organized Health Care Education/Training Program; Visit Provider Internal Medicine
DX: F11.23 Opioid dependence with withdrawal (principal); B18.2 Chronic viral hepatitis C; K58.9 Irritable bowel syndrome, unspecified; F17.210 Nicotine dependence, cigarettes, uncomplicated; F12.90 Cannabis use, unspecified, uncomplicated; R74.01 Elevation of levels of liver transaminase levels; R74.8 Abnormal levels of other serum enzymes
CPT/HCPCS: 36415; 80053; 80307; 82077; 84703; 85025; 86703; 99283; H0012

== ENCOUNTER 2022-05-10 17:22 | Emergency (ER) | payer MEDICAID, SELFPAY ==
[2022-05-10 17:23] VITALS: BP 119/90; PULSE 118; RESP 18; TEMP 36.6; O2SAT 96; BMI 26.7
--- NOTE | 2022-05-10 17:54 | EX.ED.DYSGE1 ---
HPI History of Present Illness Chief Complaint: Overdose Informant: patient Onset/Context/Timing Onset: Today Context: Sudden Onset Timing: Continuous Narrative Narrative: Patient presents with overdose of opiates that occurred today. Patient states she recently detoxed from opiates. Patient states she does not know how the opiates got into her system. Patient denies taking them. Patient denies any nausea or vomiting. Patient denies passing out. Patient states she just closed her eyes to help calm herself. Patient denies any suicidal homicidal ideations. PFSH PFS Medical History Anxiety Hepatitis C IBS (irritable bowel syndrome) IVDU (intravenous drug user) Smoker Substance abuse Tobacco abuse Home Medications NK 04/13/22 [History Last Taken Unknown] Allergy/AdvReac Type Severity Reaction Status Date / Time Penicillins Allergy Unknown Verified 05/10/22 17:30 Family History (Updated 04/13/22 @ 17:[address] Eneida Olvera DO) Mother Thyroid disorder Substance abuse Father Substance abuse Surgical History History of colonoscopy History of esophagogastroduodenoscopy (EGD) Social History Smoking Status: Current every day smoker tobacco type: cigarettes alcohol intake: never substance use type: marijuana, amphetamines, opiates and methamphetamine ROS ROS ED Constitutional Constitutional ED: Denies chills or fever(s) Eyes Eyes: Denies blurry vision or change in vision ENT ENT ED: Denies rhinorrhea or sore throat Cardiovascular Cardiovascular: Denies chest pain or palpitations Respiratory/Chest Respiratory/Chest: Denies cough or dyspnea Gastrointestinal Gastrointestinal: Denies nausea or vomiting Genitourinary Genitourinary ED: Denies dysuria or hematuria Musculoskeletal Musculoskeletal: Denies back pain or neck pain Integumentary Denies abscess or rash Neurologic Neurologic: Denies headache(s) or weakness Allergic/Immunologic Allergic/Immunologic ED: Denies mouth swelling or urticaria EXAM Physical Exam Const Vital Signs: 05/10/22 17:23 05/10/22 18:38 Temperature 97.8 F Temperature Source Oral Pulse Rate 118 H 85 Respiratory Rate 18 16 Blood Pressure 119/90 H 100/61 Blood Pressure Mean 99 74 Pulse Ox 96 93 Oxygen Delivery Method Room Air Room Air Positive well nourished and well developed General Appearance ED: well developed HEENT Reports moist mucous membranes Eyes PERRL and EOMs intact bilaterally Eyes Narrative: Pupils are miotic but reactive. Neck supple and no JVD Resp normal respiratory effort and clear to auscultation bilaterally Cardio regular rhythm and no murmurs Rate: tachycardic GI normal to inspection, nondistended, normoactive bowel sounds and non-tender Palpation: soft Extremity normal to inspection General Extremety ED: Negative for edema or tenderness General Extremity: Negative for edema Neuro oriented x3, CN's II-XII intact bilaterally and no sensory deficits noted Sensorium / Orientation: alert Motor Exam: strength 5/5 throughout Psych mental status grossly normal Skin no rashes or lesions noted MDM MDM MDM Narrative Medical decision making narrative: CBC shows a slight leukocytosis of 12.2. Comprehensive metabolic profile was essentially within normal limits. Serum alcohol level was normal. Serum hCG was negative. Patient was monitored in the emergency department. Patient had no episodes of altered mental status or apnea. Patient will be discharged to the custody of her chief privacy officer. Lab Data Attestation: I reviewed the patient's lab results. Labs: Laboratory Results - last 24 hr 05/10/22 05/10/22 05/10/22 18:25 18:50 18:50 WBC 12.2 H RBC 5.41 H Hgb 15.8 H Hct 49.0 H MCV 90.6 MCH 29.2 MCHC 32.2 RDW Std Deviation 42.6 RDW Coeff of [place] 13.1 Plt Count 259 MPV 9.7 Immature Gran % (Auto) 0.300 Neut % (Auto) 69.0 Lymph % (Auto) 23.6 [place] % (Auto) 5.2 Eos % (Auto) 0.9 Baso % (Auto) 1.0 Absolute Neuts (auto) 8.4 H Absolute Lymphs (auto) 2.88 Nucleated RBC % 0 Sodium 142 Potassium 4.6 Chloride 108 H Carbon Dioxide 27.0 Anion Gap 7 BUN 13 Creatinine 1.06 H Estim Creat Clear Calc 66.96 Est GFR (MDRD) Af Amer 85 Est GFR (MDRD) Non-Af 70 BUN/Creatinine Ratio 12.3 Glucose 100 Calcium 9.2 Total Bilirubin 0.30 AST 59 H ALT 143 H Alkaline Phosphatase 121 H Total Protein 8.3 H Albumin 4.3 Globulin 4.0 Albumin/Globulin Ratio 1.1 Serum , Qual Ethyl Alcohol 4.0 05/10/22 18:50 WBC RBC Hgb Hct MCV MCH MCHC RDW Std Deviation RDW Coeff of [place] Plt Count MPV Immature Gran % (Auto) Neut % (Auto) Lymph % (Auto) [place] % (Auto) Eos % (Auto) Baso % (Auto) Absolute Neuts (auto) Absolute Lymphs (auto) Nucleated RBC % Sodium Potassium Chloride Carbon Dioxide Anion Gap BUN Creatinine Estim Creat Clear Calc Est GFR (MDRD) Af Amer Est GFR (MDRD) Non-Af BUN/Creatinine Ratio Glucose Calcium Total Bilirubin AST ALT Alkaline Phosphatase Total Protein Albumin Globulin Albumin/Globulin Ratio Serum , Qual NEGATIVE Ethyl Alcohol Discharge Plan Triage Chief Complaint: Overdose ED Provider: Anjel Cruz Dx/Rx/DC Orders Clinical Impression: Opiate overdose, Transaminitis Instructions: ED Overdose, Opiate Prescriptions: No Action NK Primary Care Provider: Care Physician,No Primary Referrals: Care Physician,No Primary [Primary Care Provider] - [facility] [Non-Staff] - 5-7 Days Disposition Disposition: Home, Self Care
[2022-05-10 18:38] VITALS: BP 100/61; PULSE 85; RESP 16; O2SAT 93
[2022-05-10 18:57] LABS: ALB/GLOB Ratio 1.1 RATIO (0.9-2.4); AST(SGOT) 59 U/L (15-37); Alanine Aminotransfer ALT/SGPT 143 U/L (13-56); Albumin, Serum 4.3 g/dL (3.2-5.0); Alkaline Phosphatase 121 U/L (45-117); Anion Gap 7 (5-15); BUN 13 mg/dL (7-18); BUN/Creat Ratio 12.3 RATIO (10-20); Calcium,Total 9.2 mg/dL (8.5-10.1); Chloride 108 mmol/L (98-107); Creatinine, Serum 1.06 mg/dL (0.55-1.02); EST Glomerular Filtration Rate 70 mL/min (>60); Est Glom Filt Rate - Afr Amer 85 mL/min (>60); Estimated Creatinine Clearance 66.96 ml/min; Glucose 100 mg/dL (74-106); Potassium 4.6 mmol/L (3.5-5.1); Protein, Total 8.3 g/dL (6.4-8.2); Sodium Level 142 mmol/L (136-145)
[2022-05-10 18:59] LABS: Absolute Lymphocyte Count 2.88 X10^3/uL (0.83-4.51); Absolute Neutrophil Count 8.4 X10^3/uL (2.0-7.7); Basophil# 0.12 X10^3/uL; Eosinophil# 0.11 X10^3/uL; Eosinophils% 0.9 % (0-5); Hemoglobin 15.8 g/dL (12.0-15.0); Lymphocyte # 2.88 X10^3/ul (0.83-4.51); Lymphocyte % 23.6 % (19-41); Mean Corp Hgb Conc 32.2 g/dL (32-36); Mean Corpuscular Hgb 29.2 pg (27.0-32.0); Mean Corpuscular Volume 90.6 fL (81-99); Mean Platelet Vol. 9.7 fl (6.2-12.0); Monocyte# 0.63 X10^3/uL; Monocyte% 5.2 % (0-10); NRBC Flagged by Analyzer 0 % (0-5); Neutrophil # 8.43 X10^3/uL (2.7-7.7); Platelet Count 259 K/mm3 (150-450); RBC Distribution Width CV 13.1 % (11.6-14.6); RBC Distribution Width SD 42.6 fl (35.1-43.9); Red Blood Count 5.41 M/mm3 (4.2-5.4); White Blood Count 12.2 K/mm3 (4.4-11.0)
[2022-05-10 19:09] LABS: Internal QC Validated? YES +Cl - CLEAR BKGD; Pregnancy, Serum, hCG Quali. NEGATIVE Negative
[2022-05-10 19:38] VITALS: BP 92/45; PULSE 55; O2SAT 96
== END 2022-05-10 19:40 | disposition home or self-care (01) ==
PROVIDERS: Emergency Provider Emergency Medicine; Visit Provider Emergency Medicine
DX: T40.601A Poisoning by unspecified narcotics, accidental (unintentional), initial encounter (principal); F17.210 Nicotine dependence, cigarettes, uncomplicated; R74.01 Elevation of levels of liver transaminase levels
CPT/HCPCS: 36415; 80053; 82077; 84703; 85025; 99284

== ENCOUNTER 2023-10-17 23:43 | Inpatient (IN) | payer SELFPAY ==
[2023-10-17 23:44] VITALS: BP 124/93; PULSE 100; RESP 18; TEMP 36.6; O2SAT 100; BMI 22.7
--- NOTE | 2023-10-17 23:57 | HP.PCM.HOS_ITS ---
HPI - General General Date of Admission: 10/17/23 Date of Service: 10/17/23 Chief Complaint: Opiate detoxification HPI Narrative The patient is a 23 y/o F w/ PMHx: Hepatitis C never treated, Tobacco use, IBS, Anxiety and Depression, Polysubstance abuse (prior IVDA, amphetamine, opiate, methamphetamine--> over the last 2 to 3 months relapsed and started again on snorting fentanyl approximately 1 g daily) who presents to the [facility] ED on 10/17/23 w/ noted acute opiate withdrawal onset starting this afternoon following last dose in the early AM with abdominal cramping, generalized body aches, fatigue, restlessness, sweating, bouts of nausea and emesis. Patient interested in attaining clean status. She notes she had been incarcerated and was clean during that time and following was attempting to continue therapies however upon transition from incarceration status there was a delay and it was at that time that she sought illicit drugs again. She notes she for started using heroin and fentanyl when she was 19 primarily because of the individuals that she was around at that time. Workup in the ED included T97.8, heart rate 100, BP 1 24/93, respiratory rate 18, 100% on room air, CBC with WBC 7.1, hemoglobin 14, platelet 272 without marked shift, pending CMP, serum , UDS, ethyl alcohol upon requested evaluation of patient. Discussed with ED physician and as long as testing is negative would plan transition to medical surgical floor for initiation of withdrawal therapy. [facility] Medical History (Updated 10/18/23 @ 00:[address] Tita Hilton MD) Anxiety Hepatitis C History of intravenous drug abuse IBS (irritable bowel syndrome) Polysubstance abuse Tobacco abuse Home Medications NK 04/13/22 [History Last Taken Unknown] Allergy/AdvReac Type Severity Reaction Status Date / Time Penicillins Allergy Unknown Verified 10/17/23 23:46 Family History Mother Thyroid disorder Substance abuse Father Substance abuse Surgical History History of colonoscopy History of esophagogastroduodenoscopy (EGD) Social History (Updated 10/18/23 @ 00:[address] Tita Hilton MD) household members: none Smoking Status: Current every day smoker tobacco type: cigarettes Smoking packs per day: 1 Smoking cigarettes per day: 20.0 alcohol intake: never substance use type: marijuana, amphetamines, opiates, methamphetamine and other details: Currently using cannabis and snorting fentanyl ~ 1 gm daily. ROS ROS Narrative Admission Review of Systems: CONSTITUTIONAL: No weight loss, fever, + chills, weakness or fatigue. HEENT: Eyes: No visual loss, blurred vision, double vision or yellow sclerae. Ears, Nose, Throat: No hearing loss, sneezing, congestion, runny nose or sore throat. SKIN: No rash or itching, lesions, wounds. CARDIOVASCULAR: No chest pain, chest pressure or chest discomfort, palpitations, edema, orthopnea, syncopal events. RESPIRATORY: No shortness of breath, cough or sputum, wheezing, hemoptysis. GASTROINTESTINAL: + anorexia, nausea, vomiting, abdominal cramping. No melena, BRBPR. GENITOURINARY: No dysuria, frequency, urgency or retention. NEUROLOGICAL: No headache, dizziness, syncope, paralysis, ataxia, numbness or tingling in the extremities, focal weakness, change in bowel or bladder control, seizure. MUSCULOSKELETAL: + muscle, back pain, joint pain or stiffness. HEMATOLOGIC: No anemia, bleeding or bruising. LYMPHATICS: No enlarged nodes. No history of splenectomy. PSYCHIATRIC: + history of depression and anxiety. ENDOCRINOLOGIC: + reports of sweating, cold or heat intolerance. No polyuria or polydipsia. ALLERGIES: No history of asthma, hives, eczema or rhinitis. Vital Signs Vital Signs Vital Signs: 10/17/23 23:44 Temperature 97.8 F Temperature Source Temporal Pulse Rate 100 Respiratory Rate 18 Blood Pressure 124/93 H Blood Pressure Mean 103 Pulse Ox 100 Oxygen Delivery Method Room Air Weight Weight: 124 lb 8 oz Body Mass Index (BMI) 22.7 Physical Exam Narrative Physical Examination: General: Awake, alert, oriented x 3 and cooperative, seated upright in the ED bed, restless, evidence of withdrawal. Skin: Normal color, normal turgor, no icterus, no cyanosis except occasional staged ecchymoses. HEENT: AT/NC, EOMI, PERRLA, dry MM, no carotid bruits or JVD noted. Lungs: CTA bilaterally, moderate effort, mild decrease BL bases, no rales, ronchi or wheezing. Heart: Mildly tachycardic with regular rhythm; no gallop, rub audible. Abdomen: Soft, mild generalized abdominal discomfort with palpation but no rebound or guarding, no obvious distention, hyperactive BS, no appreciated HSM. Extremities: No cyanosis, clubbing, or edema. Neurological: Patient awake, alert, oriented as noted, cognitive function intact; pupils equally reactive to light and accommodation, cranial nerves II- XII grossly normal, moving all 4 extremities, no focal deficits, strength mildly to moderately decreased secondary to acute withdrawal, restless, fatigued appearing. Psychiatric: Affect appears restless, fatigued, no acute evidence of depressive or anxiety feelings but does have underlying history. Results Lab / Micro Data 10/18/23 00:20 10/18/23 00:20 Assessment & Plan Assessment/Plan (1) Opiate withdrawal: PLAN: Plan The patient is a 23 y/o F w/ PMHx: Hepatitis C never treated, Tobacco use, IBS, Anxiety and Depression, Polysubstance abuse (prior IVDA, amphetamine, opiate, methamphetamine--> over the last 2 to 3 months relapsed and started again on snorting fentanyl approximately 1 g daily) who presents to the [facility] ED on 10/17/23 w/ noted acute opiate withdrawal onset. #1. Acute Opiate Withdrawal: Will admit to [facility], routine labs being obtained as noted, will initiate and continue on protocol with tapering course of Subutex, as needed tylenol, ibuprofen, bowel regimen, gabapentin, Bentyl, Vistaril, methocarbamol, clonidine, PRN nightly trazodone for insomnia, IV fluids, IV antiemetics. Once patient clinically improved and completion of taper nearing will plan consultation with case management for transition to next level of rehabilitation care. #2. Polysubstance Abuse, IVDA Hx, History of Hepatitis C, Chronic: From discussion patient never sought hepatitis treatment, currently reports snorting drugs but does have history of IV drug abuse previously and cannot recall her most recent assessment.will obtain HIV, hepatitis panel as well as syphilis per discussion with patient. #3. Tobacco Abuse: Encouraged cessation, inpatient consultation per RT, NR if desired. #4. Anxiety and depression: Not on regimen, encourage continued outpatient follow-up and assessment, case management/social work/180 consulted. #5. IBS: Unclear if mixed or primarily constipation or diarrhea, will continue to monitor and may add as needed agents. #6. DVT prophylaxis: Low risk, encourage ambulation. Charges/Coding Visit Charges Inpatient E&M: 54736 Init Hosp L3
--- NOTE | 2023-10-18 00:21 | EX.ED.SAOD ---
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 She last used in the morning, she has gone all day and night without it and feeling like she is in withdrawal. She is feeling shaky, she has had nausea and vomiting, no abdominal cramping or fever/chills or dyspnea. No recent illness. Other than marijuana she uses no other illicit substances. She denies any suicidal ideation and takes no prescription medications for any other medical problems. [facility] Medical History (Updated 10/18/23 @ 00:[address] Tita Hilton MD) Anxiety Hepatitis C History of intravenous drug abuse IBS (irritable bowel syndrome) Polysubstance abuse Tobacco abuse Home Medications NK 04/13/22 [History Last Taken Unknown] Allergy/AdvReac Type Severity Reaction Status Date / Time Penicillins Allergy Unknown Verified 10/17/23 23:46 Family History Mother Thyroid disorder Substance abuse Father Substance abuse Surgical History History of colonoscopy History of esophagogastroduodenoscopy (EGD) Social History (Updated 10/18/23 @ 00:[address] Tita Hilton MD) household members: none Smoking Status: Current every day smoker tobacco type: cigarettes Smoking packs per day: 1 Smoking cigarettes per day: 20.0 alcohol intake: never substance use type: marijuana, amphetamines, opiates, methamphetamine and other details: Currently using cannabis and snorting fentanyl ~ 1 gm daily. ROS ROS ED Constitutional Constitutional ED: Reports malaise and sweats; Denies chills or fever(s) Eyes Eyes: Denies change in vision or diplopia ENT ENT ED: Denies rhinorrhea or sore throat Cardiovascular Cardiovascular: Denies chest pain or palpitations Respiratory/Chest Respiratory/Chest: Denies cough or dyspnea Gastrointestinal Gastrointestinal: Reports nausea and vomiting; Denies abdominal pain or diarrhea Genitourinary Genitourinary ED: Denies dysuria or hematuria Musculoskeletal Musculoskeletal: Denies back pain or neck pain Integumentary Denies abscess or rash Neurologic Neurologic: Denies headache(s), paresthesias or weakness Psychiatric Psychiatric: Reports anxiety; Denies suicidal thoughts EXAM Physical Exam Const Vital Signs: 10/17/23 23:44 Temperature 97.8 F Temperature Source Temporal Pulse Rate 100 Respiratory Rate 18 Blood Pressure 124/93 H Blood Pressure Mean 103 Pulse Ox 100 Oxygen Delivery Method Room Air Positive well nourished and well developed General Appearance ED: well developed and NAD HEENT Reports moist mucous membranes normocephalic and atraumatic Eyes PERRL and EOMs intact bilaterally Neck full ROM, no lymphadenopathy and supple Resp normal respiratory effort and clear to auscultation bilaterally Cardio regular rate, regular rhythm and no murmurs GI non-tender and non-distended Auscultation: normoactive bowel sounds Palpation: soft Back/Spine no CVA tenderness General Back: other FROM Extremity normal to inspection General Extremety ED: Negative for edema, pulses abnormal or tenderness General Extremity: Negative for edema or pulses abnormal Neuro oriented x3, CN's II-XII intact bilaterally and no sensory deficits noted Sensorium / Orientation: awake and alert Motor Exam: strength 5/5 throughout Skin no rashes or lesions noted and no wounds MDM MDM MDM Narrative Medical decision making narrative: Labs obtained and reviewed. Discussed with hospitalist for admission. Patient given Zofran while here in emergency department. Vital signs are normal. Lab Data Attestation: I reviewed the patient's lab results. Discharge Plan Dx/Rx/DC Orders Clinical Impression: Opiate withdrawal, Opiate dependence Disposition Disposition: Acute Care Hospital [facility]
[2023-10-18] MEDS: Ondansetron ODT 4 MG Tablet 8 MG PO (00:23)
--- OUTSIDE RECORDS SUMMARY | 2023-10-18 00:27 | XMS RPT_ITS | CCD ---
Author Name Unknown Address [facility] [place] [address] Organization [facility] Care Team Providers Care Spin Tank Tender Name Role Phone RUMA CRUMP Primary Care Unavailabl e Allergies Allergy Classification Reported Allergen(s) Allergy Type Date of Onset Reaction(s) Facility (1 source) Penicillins; Translations: [PENICILLINS] Propensity to adverse reactions to drug (disorder) 7 [facility] Repository Problems Problem Classification Problem Date Documented Date Episodic/Chronic Immunizations and screening for infectious disease (6 sources) Encounter for screening for human immunodeficiency virus [HIV]; Translations: [Encounter for screening for other viral diseases] Onset: 04-06-2023 Episodic Residual codes; unclassified (2 sources) Tobacco use; Translations: [Tobacco use] Onset: 04-06-2023 Episodic Substance-related disorders (2 sources) Other psychoactive substance use, unspecified, uncomplicated; Translations: [Other psychoactive substance use, unspecified, uncomplicated] Onset: 04-06-2023 Episodic Results Test Name Value Interpretation Reference Range Facil ity Encounters Encounter Date Encounter Type Care Provider Facility Start: 04-06-2023 End: 04-10-2023 ambulatory RUMA CRUMP [facility] Progress note 06-28-2021 Note Date & Type Note Facility 06-28-2021 Note HNO ID: [id number] Author: Naz Hall MD Service: ? Author Type: ? Type: Progress Notes Filed: 06/28/2021 4:16 PM Note Text: Morgan is a 20 year old who presents for an annual gynecologic exam with c/o. Gets HSV lesions on her buttocks, last outbreak was one year ago. Patient admits she has had an opioid use disorder. She is looking into starting a treatment for this. States she has not used recently. Has safe living conditions. Staying with her grandmother. Is in a sexually active relationship. 2 partners in the past year. States she has not had a period in over a year. Had an evaluation for this last year. Denies any weight gain or weight loss. Denies any abnormal vaginal discharge, itching or burning. Menses: hasn't a period in a year. . Contraception: none HPV vaccine: Yes Last Pap: Never HPV: N/A History of abnormal pap: n/a Last mammogram: never Sexually active: Yes OB History T0 L0 SAB0 TAB0 Ectopic0 Multiple0 Live Births0 PAST MEDICAL HISTORY Diagnosis Date - Migraine - PMH - PAST MEDICAL HISTORY OF [id number] normal color vision PAST SURGICAL HISTORY Procedure Laterality Date - NEXPLANON INSERTION 01/13/2016 - NEXPLANON REMOVAL 2018 FAMILY HISTORY Problem Relation Age of Onset - Cancer Mother Lung - Thyroid Mother - Asthma Father Not known - Asthma Paternal Grandmother SOCIAL HISTORY Social History Tobacco Use - Smoking status: Current Every Day Smoker Types: Cigarettes - Smokeless tobacco: Never Used - Tobacco comment: outside Vaping Use - Vaping Use: Never used Substance Use Topics - Alcohol use: No - Drug use: No REVIEW OF SYSTEMS Abdomen: No abdominal pain, nausea, vomiting, diarrhea, or constipation. No bloating, early satiety, indigestion, or increased flatulence. Bladder: No dysuria, gross hematuria, urinary frequency, urinary urgency, or incontinence. Breast: No breast lumps, nipple d/c, overlying skin changes, redness or skin retraction. Allergies and current medication updated:Yes EXAM: Ht 5' 3 (1.60m) Wt 139 lb (63.1kg) LMP 08/07/2019 BMI 24.63 kg/(m2). GENERAL: pleasant, female in no apparent distress HEENT: Normocephalic, atraumatic, mucus membranes moist and no lesions NECK: Supple, full range of motion, no adenopathy and thyroid normal DERMATOLOGY: Normal, without lesions, non-icteric and non-hirsute BREAST: soft, non-tender, symmetric, no dominant mass, normal nipple-areolar complex, no lymphadenopathy and no nipple discharge CHEST: Normal inspiratory effort ABDOMEN: soft, non-tender and no masses PELVIC: external genitalia normal, normal Bartholin's glands, urethra, [place]'s glands, no vulvar lesions, no cervical lesions, good vaginal support, physiologic discharge present, normal appearing perineal body and perianal region, tolerated exam with some discomfort BIMANUAL: uterus normal size, shape and consistency, no adnexal masses and non-tender RECTOVAGINAL: deferred. NEURO: alert and oriented x3,exam grossly non-focal EXTREMITIES: normal ASSESSMENT/PLAN: 1) Health maintenance: HPV vaccine: completed series 2) Contraception: xulane patch. Contraceptive options reviewed and information provided. 3) STD screening: Accepts full STD screeening including HIV, Syphilis and Hepatitis. encouraged f/u and establish w/ PCP encouraged patient to f/u for opiod use disorder treatment. 4) Follow up one year or sooner as needed Had eval for amenorrhea last year. Check TSH and hcg today Naz Hall MD [facility] Progress note 06-27-2021 Note Date & Type Note Facility 06-27-2021 Note HNO ID: [id number] Author: Candace Lim APRN.FOOTWEAR SALES ASSOCIATE Service: ? Author Type: Nurse Practitioner Type: Progress Notes Filed: 06/27/2021 4:13 PM Note Text: Triage Note: Patient had personal issues on complaint for checking in. Spoke with patient concerning reasons to be treated. States she needed fingers looked at, stomach issues and medications for HSV. Advised we can treat this, ok to check in. When timed to be roomed, patient had left waiting room. Attempt to call several times, and she did not answer. Left without being seen. Candace Lim APRN.FOOTWEAR SALES ASSOCIATE [facility] Summary Purpose Family History No Family History Records FoundNo Family History Records FoundNo Family History Records FoundNo Family History Records Found Advance Directives No Advanced Directives Records FoundNo Advanced Directives Records FoundNo Advanced Directives Records FoundNo Advanced Directives Records Found Additional Source Comments INFORMATION SOURCE (unrecogn ized section and content) DATE CREATED AUTHOR AUTHOR'S ORGANIZ ATION 07/29/2019 [facility] ([place]) DATE CREATED AUTHOR AUTHOR'S ORGANIZ ATION 10/31/2021 [facility] DATE CREATED AUTHOR AUTHOR'S ORGANIZ ATION 04/10/2023 [facility] FOR RECORDS PERTAINING TO PATIENTS WHO ARE OR HAVE BEEN ENROLLED IN A CHEMICAL DEPENDENCY/SUBSTANCEABUSE PROGRAM, SOME INFORMATION MAY BE OMITTED. This clinical summary was aggregated from multiple sources. Caution should be exercised in using it in the provision of clinical care. This summary normalizes information from multiple sources, and as a consequence, information in this document may materially change the coding, format and clinical context of patient data. In addition, data may be omitted in some cases. CLINICAL DECISIONS SHOULD BE BASED ON THE PRIMARY CLINICAL RECORDS. [facility] [employer] [facility]. provides no warranty or guarantee of the accuracy or completeness of information in this document.
--- OUTSIDE RECORDS SUMMARY | 2023-10-18 00:34 | XMS RPT_ITS | CCD ---
Author Name Unknown Address [facility] [place] [address] Organization [facility] Care Team Providers Care Main Line Assembler Name Role Phone RUMA CRUMP Primary Care Unavailabl e Allergies Allergy Classification Reported Allergen(s) Allergy Type Date of Onset Reaction(s) Facility (1 source) Penicillins; Translations: [PENICILLINS] Propensity to adverse reactions to drug (disorder) 7 [facility] Repository Problems Problem Classification Problem Date Documented [...] Start: 04-06-2023 End: 04-10-2023 ambulatory RUMA CRUMP [facility] Progress note 06-28-2021 Note Date & Type Note Facility 06-28-2021 Note HNO ID: [id number] Author: Naz Hall MD Service: ? Author [...] - PMH - PAST MEDICAL HISTORY OF [id number] normal color vision PAST SURGICAL HISTORY Procedure [...] external genitalia normal, normal Bartholin's glands, urethra, [place]'s glands, no vulvar lesions, no cervical lesions, [...] TSH and hcg today Naz Hall MD [facility] Progress note 06-27-2021 Note Date & Type Note Facility 06-27-2021 Note HNO ID: [id number] Author: Candace Lim APRN.ACCOUNTS PAYABLE CLERK Service: ? Author Type: Nurse Practitioner Type: [...] answer. Left without being seen. Candace Lim APRN.ACCOUNTS PAYABLE CLERK [facility] Summary Purpose Family History No Family History Records FoundNo Family History Records FoundNo Family History Records FoundNo Family History Records Found Advance Directives No Advanced Directives Records FoundNo Advanced Directives Records FoundNo Advanced Directives Records FoundNo Advanced Directives Records Found Additional Source Comments INFORMATION SOURCE (unrecogn ized section and content) DATE CREATED AUTHOR AUTHOR'S ORGANIZ ATION 07/29/2019 [facility] ([place]) DATE CREATED AUTHOR AUTHOR'S ORGANIZ ATION 10/31/2021 [facility] DATE CREATED AUTHOR AUTHOR'S ORGANIZ ATION 04/10/2023 [facility] FOR RECORDS PERTAINING TO PATIENTS WHO ARE [...] BE BASED ON THE PRIMARY CLINICAL RECORDS. [facility] [employer] [facility]. provides no warranty or guarantee of the accuracy or completeness of information in this document.
[2023-10-18 00:38] LABS: Absolute Lymphocyte Count 1.84 X10^3/uL (0.83-4.51); Absolute Neutrophil Count 4.8 X10^3/uL (2.0-7.7); Basophil# 0.08 X10^3/uL; Basophil% 1.1 % (0-1); Eosinophil# 0.07 X10^3/uL; Hematocrit 42.4 % (37-47); Lymphocyte # 1.84 X10^3/ul (0.83-4.51); Mean Corpuscular Volume 84.8 fL (81-99); Monocyte# 0.25 X10^3/uL; Monocyte% 3.5 % (0-10); NRBC Flagged by Analyzer 0 % (0-5); Neutrophil # 4.78 X10^3/uL (2.7-7.7); Neutrophil % 67.7 % (47-70); Platelet Count 272 K/mm3 (150-450); RBC Distribution Width CV 12.6 % (11.6-14.6); RBC Distribution Width SD 38.6 fl (35.1-43.9); White Blood Count 7.1 K/mm3 (4.4-11.0)
[2023-10-18 00:45] LABS: Internal QC Validated? YES +Cl - CLEAR BKGD; Pregnancy, Serum, hCG Quali. NEGATIVE Negative
[2023-10-18 00:52] LABS: AST(SGOT) 26 U/L (15-37); Alanine Aminotransfer ALT/SGPT 61 U/L (13-56); Albumin, Serum 4.1 g/dL (3.2-5.0); Alkaline Phosphatase 97 U/L (45-117); Anion Gap 3 (5-15); BUN 13 mg/dL (7-18); BUN/Creat Ratio 16.6 RATIO (10-20); Calcium,Total 9.4 mg/dL (8.5-10.1); Chloride 107 mmol/L (98-107); Creatinine, Serum 0.78 mg/dL (0.55-1.02); EST Glomerular Filtration Rate 97 mL/min (>60); Est Glom Filt Rate - Afr Amer 118 mL/min (>60); Estimated Creatinine Clearance 89.48 ml/min; Globulin 4.2 g/dL (2.2-4.2); Glucose 125 mg/dL (74-106); Potassium 3.7 mmol/L (3.5-5.1); Protein, Total 8.3 g/dL (6.4-8.2); Sodium Level 135 mmol/L (136-145)
[2023-10-18 00:53] LABS: Amphetamine Urine VISTA POSITIVE (<1000 ng/mL); Barbiturate Urine VISTA NEGATIVE (< 200 ng/mL); Benzodiazepine Urine VISTA NEGATIVE (< 200 ng/mL); Cocaine Urine VISTA NEGATIVE (< 300 ng/mL); Ecstacy Urine VISTA POSITIVE (< 500 ng/mL); Methadone Urine VISTA NEGATIVE (< 300 ng/mL); PCP Urine VISTA NEGATIVE (< 25 ng/mL); THC Urine VISTA POSITIVE (< 50 ng/mL); Vista UDS pH Range 7
[2023-10-18 00:58] VITALS: BP 108/56; PULSE 68; RESP 16; TEMP 37; O2SAT 100
[2023-10-18 01:03] VITALS: BP 108/67; PULSE 69; RESP 16; O2SAT 100
[2023-10-18 01:35] VITALS: BP 115/74; PULSE 52; RESP 17; TEMP 36.5; O2SAT 100
[2023-10-18 01:36] VITALS: BMI 23.3
[2023-10-18] MEDS: Buprenorphine HCl 2 MG TAB.SUBL 4 MG SL (03:20)
[2023-10-18] MEDS: Gabapentin 300 MG Capsule PO (03:20)
[2023-10-18] MEDS: Ibuprofen 600 MG Tablet PO (03:21)
[2023-10-18] MEDS: Methocarbamol 750 MG Tablet PO (03:21)
[2023-10-18] MEDS: hydrOXYzine PAM 25 MG Capsule 50 MG PO (05:09)
--- NOTE | 2023-10-18 05:24 | NURSING ---
I was in another patients room and the aid came to inform me the charge nurse told her that this Pt wanted to leave AMA
--- NOTE | 2023-10-18 05:26 | NURSING ---
called into pt room. She wants the tube open up and wants to leave. Pt said she cant sleep and just wants to leave. AMA paper work signed and pt is getting dressed. Dr lo notified no other orders given. Security called to escot pt out
--- NOTE | 2023-10-18 05:32 | DS.PCM_ITS ---
Providers Date of Admission: 10/17/23 Date of Discharge: 10/18/23 Primary Care Physician: No Primary Care Phys Reason For Visit: OPIATE ABUSE, WITHDRAWAL,DETOX Diagnosis Discharge Diagnosis (1) Opiate withdrawal: Status: Acute Code(s): F11.23 - Opioid dependence with withdrawal Plan: Discharge Diagnoses: #1. Acute Opiate Withdrawal (LEFT AMA) #2. Polysubstance Abuse, IVDA Hx, History of Hepatitis C, Chronic #3. Tobacco Abuse #4. Anxiety and depression #5. IBS Medications at Discharge Home Medications NK 04/13/22 Hospital Course Operations None Procedures None Summary of Care Provided Minutes Spent on Discharge: 15 Hospital Course: The patient is a 23 y/o F w/ PMHx: Hepatitis C never treated, Tobacco use, IBS, Anxiety and Depression, Polysubstance abuse (prior IVDA, amphetamine, opiate, methamphetamine--> over the last 2 to 3 months relapsed and started again on snorting fentanyl approximately 1 g daily) who presented to the [facility] ED on 09/25 01/15 w/ noted acute opiate withdrawal onset starting this afternoon following last dose in the early AM with abdominal cramping, generalized body aches, fatigue, restlessness, sweating, bouts of nausea and emesis. Patient noted interested in attaining clean status. She noted she had been incarcerated and was clean during that time and following was attempting to continue therapies however upon transition from incarceration status there was a delay and it was at that time that she sought illicit drugs again. She noted she for started using heroin and fentanyl when she was 19 primarily because of the individuals that she was around at that time. Patient was admitted to [facility], initiated and continued on protocol with tapering course of Subutex, as needed tylenol, ibuprofen, bowel regimen, gabapentin, Bentyl, Vistaril, methocarbamol, clonidine, PRN nightly trazodone for insomnia, IV fluids, IV antiemetics. 180/case management for transition to next level of rehabilitation care. Unfortunately 10/18/23 5:30 am notified by nursing staff that patient was leaving AMA despite encouragement to remain for treatment. Weight / BMI Weight Weight: 123 lb 3.814 oz Body Mass Index (BMI) 23.3 ABG / Lab / Microbiology Data 10/18/23 00:20 10/18/23 00:20 Laboratory: Laboratory Results - last 24 hr 10/18/23 00:10: Urine Opiates Screen NEGATIVE, Urine Methadone Screen NEGATIVE, Ur Barbiturates Screen NEGATIVE, Ur Phencyclidine Scrn NEGATIVE, Ur Amphetamines Screen POSITIVE H, MDMA (Ecstasy) Screen POSITIVE H, U Benzodiazepines Scrn NEGATIVE, Urine Cocaine Screen NEGATIVE, U Cannabinoids Screen POSITIVE H, Ur Drug Screen Comment 10/18/23 00:20: WBC 7.1, RBC 5.00, Hgb 14.0, Hct 42.4, MCV 84.8, MCH 28.0, MCHC 33.0, RDW Std Deviation 38.6, RDW Coeff of [place] 12.6, Plt Count 272, MPV 11.0, Immature Gran % (Auto) 0.700, Neut % (Auto) 67.7, Lymph % (Auto) 26.0, Dukes % (Auto) 3.5, Eos % (Auto) 1.0, Baso % (Auto) 1.1 H, Absolute Neuts (auto) 4.8, Absolute Lymphs (auto) 1.84, Nucleated RBC % 0, Sodium 135 L, Potassium 3.7, Chloride 107, Carbon Dioxide 25.0, Anion Gap 3 L, BUN 13, Creatinine 0.78, Estim Creat Clear Calc 89.48, Est GFR (MDRD) Af Amer 118, Est GFR (MDRD) Non-Af 97, BUN/Creatinine Ratio 16.6, Glucose 125 H, Calcium 9.4, Total Bilirubin 0.30, AST 26, ALT 61 H, Alkaline Phosphatase 97, Total Protein 8.3 H, Albumin 4.1, Globulin 4.2, Albumin/Globulin Ratio 1.0, Serum , Qual NEGATIVE, Ethyl Alcohol 3.0 Meaningful Use Info Meaningful Use Diagnoses (Choose all that apply): None applicable Discharge Plan Admission Admit Date/Time: 10/17/23 23:57 Attending Provider: Tita Hilton Primary Care Provider: Care Physician,Ashley Primary Discharge Orders/Prescriptions Prescriptions: No Action NK Referrals / Follow Up: Care Physician,No Primary [Primary Care Provider] -
[2023-10-18 11:04] LABS: HIV - WCH Non-Reactive (Nonreactive)
[2023-10-18 11:06] LABS: Hepatitis B Surface Antibody Reactive; Hepatitis B Surface Antigen Non-Reactive (Nonreactive); Syphilis Antibodies Non-reactive
[2023-10-18 11:13] LABS: Hepatitis C Antibody REACTIVE (Nonreactive)
== END 2023-10-18 05:39 | disposition left against medical advice (07) | DRG 894 ==
LOC: ED 10-18 00:23 → MS3 10-18 00:32
PROVIDERS: Admitting Provider Family Medicine; Emergency Provider Emergency Medicine; Referring Provider Emergency Medicine; Visit Provider Family Medicine
DX: F11.23 Opioid dependence with withdrawal (principal); F12.90 Cannabis use, unspecified, uncomplicated; F32.A Depression, unspecified; K58.9 Irritable bowel syndrome, unspecified; F17.210 Nicotine dependence, cigarettes, uncomplicated; F41.9 Anxiety disorder, unspecified; G47.00 Insomnia, unspecified
CPT/HCPCS: 80053; 80307; 80320; 84703; 85025; 86703; 86706; 86780; 86803; 87340; 99283; G0480